=== PATIENT | female | born 1940 | race Caucasian/White ===

== ENCOUNTER 2017-01-12 19:15 | Inpatient (IN) | payer MEDICARE ==
[~2017-01-12] VITALS: Ht 167.6 cm; Wt 77.9 kg
[~2017-01-12 19:15] MED LIST: ALA PO; ALLERGY PILL PO; ALPR1TAB2 PO; ASPI1TAB30 PO; BIOTIN PO; CINNAMON PO; CO Q10 PO; CRANBERRY PO; CYMBALTA PO; DHEA PO; ENTERIC ASPIRIN PO; ESCI5TAB7 PO; FLAX PO; HYDR-3138 PO; LACT1CAP37 PO; LEVO25TA4 PO; LUTEIN PO; MAGNESIUM PO; MAXALT PO; MILK THISTLE PO; MULTIVITAMIN PO; NEURO PS PO; NIAC500T9 PO; OMEP20TA62 PO; OXYB1PAT TD; OXYB5TAB7 PO; PANCREATIC ENZYME PO; ST.150CA PO; TUMERIC PO; VITAMIN D PO
[2017-01-12] MEDS ORDERED: SODIUM CHLORIDE 0.9% 1,000 ML IV ONE (19:45)
[2017-01-12] MEDS ORDERED: methylPREDNISolone SOD SUCC 125 MG/2 ML ONE (19:58)
[2017-01-12] MEDS ORDERED: DIPHENHYDRAMINE 50 MG/ML, 1ML ONE (19:58)
[2017-01-12] MEDS ORDERED: DIPHENHYDRAMINE 50 MG/ML, 1ML IVPush ONE (20:00)
[2017-01-12] MEDS ORDERED: SODIUM CHLORIDE FLUSH 10ML SYR IVF ONE (20:00)
[2017-01-12] MEDS ORDERED: methylPREDNISolone SOD SUCC 125 MG/2 ML IVPush ONE (20:00)
[2017-01-12] MEDS ORDERED: LABETALOL 5MG/ML, 20ML IVPush ONE (20:00)
[2017-01-12] MEDS ORDERED: ONDANSETRON 2MG/ML, 2ML IVPush ONE (20:00)
[2017-01-12] MEDS ORDERED: ONDANSETRON 2MG/ML, 2ML ONE (20:12)
[2017-01-12] MEDS ORDERED: LABETALOL 5MG/ML, 20ML ONE (20:12)
[2017-01-12] MEDS ORDERED: MORPHINE SULFATE 4 MG/ML, 1ML ONE ×2 (20:12→22:04)
[2017-01-12 20:13] LABS: HEMOGLOBIN 14.1 g/dL (11.7-16.4)
[2017-01-12] MEDS: MORPHINE SULFATE 4 MG/ML, 1ML IVPush PRN ×2 (20:14→22:17)
[2017-01-12 20:23] LABS: ASPARTATE AMINO TRANSFERASE 20 U/L (15-37); BLOOD UREA NITROGEN 11 mg/dL (7-18)
[2017-01-12 20:42] LABS: IS PT STATUS REG ER OR PRE ER? YES
[2017-01-12] MEDS ORDERED: SODIUM CHLORIDE 0.9% 1,000 ML IV SCH (22:03)
[2017-01-12] MEDS ORDERED: ONDANSETRON 2MG/ML, 2ML IVP PRN (22:30)
[2017-01-12] MEDS ORDERED: NITROGLYCERIN 0.4 MG BOTTLE (25 TABS) SL PRN (22:30)
[2017-01-12] MEDS ORDERED: MORPHINE SULFATE 4 MG/ML, 1ML IVPush PRN (22:30)
[2017-01-12] MEDS ORDERED: MILK THISTLE PO SCH (22:30)
[2017-01-12] MEDS ORDERED: POLYETHYLENE GLYCOL 17 GM PACKET PO PRN (22:30)
[2017-01-12] MEDS ORDERED: BISACODYL 10 MG SUPP PR PRN (22:30)
[2017-01-12] MEDS ORDERED: ACETAMINOPHEN 325 MG TABLET PO PRN (22:30)
[2017-01-12 22:45] VITALS: BP 114/67
[2017-01-12] MEDS ORDERED: MAALOX/HYOSCYAMINE/LIDOCAINE 45 ML BOTTLE PO ONE (23:30)
[2017-01-12] MEDS: ALPRazolam 1MG TABLET PO SCH (23:56)
[2017-01-12] MEDS: HEPARIN 5,000 UNITS/ML, 1ML SQ SCH (23:58)
[2017-01-13 02:01] VITALS: BP 93/56
[2017-01-13 02:13] LABS: HEMOGLOBIN 12.9 g/dL (11.7-16.4)
[2017-01-13 02:33] LABS: IS PT STATUS REG ER OR PRE ER? NO
[2017-01-13] MEDS ORDERED: OMNIPAQUE 350 MG/ML, 100ML BOTTLE ONE (04:45)
[2017-01-13 06:00] VITALS: BP 105/64
[2017-01-13] MEDS: LEVOTHYROXINE 75 MCG TABLET PO SCH (06:00)
[2017-01-13 06:26] LABS: BLOOD UREA NITROGEN 12 mg/dL (7-18)
[2017-01-13 06:30] LABS: ASPARTATE AMINO TRANSFERASE 365 U/L (15-37)
[2017-01-13 06:39] VITALS: BP 105/62
[2017-01-13] MEDS: ALPRazolam 1MG TABLET PO SCH ×2 (07:54→20:39)
[2017-01-13] MEDS: SENNA/DOCUSATE TABLET PO SCH (07:55)
[2017-01-13] MEDS: NIACIN 500 MG TABLET.ER PO SCH (07:55)
[2017-01-13] MEDS: MAGNESIUM OXIDE 400 MG TABLET PO SCH (07:55)
[2017-01-13] MEDS: MULTIVITAMIN 1 TABLET PO SCH (07:55)
[2017-01-13] MEDS: OMEPRAZOLE 20 MG CAPSULE.DR PO SCH (07:55)
[2017-01-13] MEDS: OXYBUTYNIN CHLORIDE 5 MG TABLET PO SCH (07:55)
[2017-01-13] MEDS: CHOLECALCIFEROL 1,000 UNIT TABLET PO SCH (07:55)
[2017-01-13] MEDS: FLORASTOR 250 MG CAPSULE PO SCH (07:56)
[2017-01-13] MEDS: CITALOPRAM 20 MG TABLET PO SCH (07:56)
[2017-01-13] MEDS: HEPARIN 5,000 UNITS/ML, 1ML SQ SCH ×2 (07:56→15:42)
[2017-01-13 07:59] LABS: IS PT STATUS REG ER OR PRE ER? NO
[2017-01-13] MEDS ORDERED: MAALOX/HYOSCYAMINE/LIDOCAINE 45 ML BOTTLE PO PRN (08:00)
[2017-01-13] MEDS: SUCRALFATE 1 GM/10 ML UDC PO SCH ×4 (08:32→20:45)
[2017-01-13] MEDS ORDERED: REGADENOSON 0.4 MG/5 ML SYRINGE ONE (08:57)
[2017-01-13] MEDS ORDERED: OXYBUTYNIN TD SCH (09:00)
[2017-01-13] MEDS ORDERED: CO Q10 PO SCH (09:00)
[2017-01-13] MEDS ORDERED: FLAX PO SCH (09:00)
[2017-01-13] MEDS: NEURO PS PO SCH (09:00)
[2017-01-13] MEDS ORDERED: ASPI1TAB30 PO-COUM (11:36)
[2017-01-13 13:39] VITALS: BP 115/66
[2017-01-13] MEDS: SODIUM CHLORIDE NASAL SPRAY 45ML BOTTLE NAS PRN (14:40)
[2017-01-13 18:58] VITALS: BP 122/73
[2017-01-14] MEDS: HEPARIN 5,000 UNITS/ML, 1ML SQ SCH ×3 (00:06→08:10)
[2017-01-14 01:11] VITALS: BP 95/56
[2017-01-14] MEDS: LEVOTHYROXINE 75 MCG TABLET PO SCH (06:01)
[2017-01-14 06:38] LABS: ASPARTATE AMINO TRANSFERASE 96 U/L (15-37); BLOOD UREA NITROGEN 14 mg/dL (7-18)
[2017-01-14 07:08] VITALS: BP 137/84
[2017-01-14] MEDS ORDERED: SUCR1ORA2 PO (07:57)
[2017-01-14] MEDS ORDERED: OMEP20TA62 PO (07:57)
[2017-01-14] MEDS: SUCRALFATE 1 GM/10 ML UDC PO SCH (08:05)
[2017-01-14] MEDS: SODIUM CHLORIDE NASAL SPRAY 45ML BOTTLE NAS PRN (08:05)
[2017-01-14] MEDS: ALPRazolam 1MG TABLET PO SCH (08:06)
[2017-01-14] MEDS: FLORASTOR 250 MG CAPSULE PO SCH (08:06)
[2017-01-14] MEDS: CHOLECALCIFEROL 1,000 UNIT TABLET PO SCH (08:07)
[2017-01-14] MEDS: NIACIN 500 MG TABLET.ER PO SCH (08:07)
[2017-01-14] MEDS: CITALOPRAM 20 MG TABLET PO SCH (08:07)
[2017-01-14] MEDS: OMEPRAZOLE 20 MG CAPSULE.DR PO SCH (08:07)
[2017-01-14] MEDS: MAGNESIUM OXIDE 400 MG TABLET PO SCH (08:07)
[2017-01-14] MEDS: MULTIVITAMIN 1 TABLET PO SCH (08:07)
[2017-01-14] MEDS: OXYBUTYNIN CHLORIDE 5 MG TABLET PO SCH (08:08)
[2017-01-14] MEDS: SENNA/DOCUSATE TABLET PO SCH (08:10)
[2017-01-14] MEDS: NEURO PS PO SCH (09:00)
== END 2017-01-14 10:38 | disposition home or self-care (01) | DRG 442 ==
LOC: ED 21:15 → EDIP 21:35 → 5SO 22:29 → DCLOUNGE 01-14 09:45
PROVIDERS: ADMIT Family Medicine; ATTEND Internal Medicine
DX: B17.9 Acute viral hepatitis, unspecified (principal); E87.1 Hypo-osmolality and hyponatremia; J96.10 Chronic respiratory failure, unspecified whether with hypoxia or hypercapnia; K21.9 Gastro-esophageal reflux disease without esophagitis; I10 Essential (primary) hypertension; J44.9 Chronic obstructive pulmonary disease, unspecified; Z66 Do not resuscitate; E03.9 Hypothyroidism, unspecified; J45.909 Unspecified asthma, uncomplicated; K76.0 Fatty (change of) liver, not elsewhere classified; M48.00 Spinal stenosis, site unspecified; Z99.81 Dependence on supplemental oxygen; Z88.8 Allergy status to other drugs, medicaments and biological substances; Z91.013 Allergy to seafood
CPT/HCPCS: 36415; 71010; 71275; 74175; 78452; 80053; 83690; 83735; 83880; 84100; 84443; 84484; 85025; 85610; 86704; 86706; 86708; 86803; 87340; 93005; 93017; 93306; 96374; 96375; 96376; J1644; J2405; J2785; Q9967; A9502; C9898; J1200; J2930; J7030

== ENCOUNTER 2017-08-08 10:13 | Emergency (ER) | payer MEDICARE ==
[~2017-08-08] VITALS: Ht 167.6 cm; Wt 68.0 kg
[~2017-08-08 10:13] MED LIST changes: -ASPI1TAB30 PO; +ASPI1TAB31 PO; +ASPI1TAB31 PO-COUM; -HYDR-3138 PO; +HYDR-3237 PO; +SUCR1ORA5 PO
[2017-08-08 10:15] VITALS: BP 202/87
== END 2017-08-08 12:14 | disposition home or self-care (01) ==
LOC: ED 10:39
DX: Z76.0 Encounter for issue of repeat prescription (principal); F41.1 Generalized anxiety disorder; I10 Essential (primary) hypertension; K21.9 Gastro-esophageal reflux disease without esophagitis; J44.9 Chronic obstructive pulmonary disease, unspecified
CPT/HCPCS: 99282

== ENCOUNTER 2017-08-10 10:34 | Emergency (ER) | payer MEDICARE ==
[~2017-08-10] VITALS: Ht 167.6 cm; Wt 67.4 kg
[2017-08-10 10:36] VITALS: BP 154/92
== END 2017-08-10 11:36 | disposition home or self-care (01) ==
LOC: ED 11:24
DX: Z76.0 Encounter for issue of repeat prescription (principal); F41.1 Generalized anxiety disorder; J44.9 Chronic obstructive pulmonary disease, unspecified; K21.9 Gastro-esophageal reflux disease without esophagitis; I10 Essential (primary) hypertension; Z88.8 Allergy status to other drugs, medicaments and biological substances
CPT/HCPCS: 99283

== ENCOUNTER 2018-12-13 14:56 | Emergency (ER) | payer MEDICARE, OTHER ==
[~2018-12-13] VITALS: Ht 170.2 cm; Wt 59.6 kg
[2018-12-13 15:05] VITALS: BP 167/100
[2018-12-13] MEDS ORDERED: ALPRazolam 1MG TABLET PO ONE (16:00)
== END 2018-12-13 15:54 | disposition home or self-care (01) ==
LOC: ED 15:40
DX: F41.1 Generalized anxiety disorder (principal); Z76.0 Encounter for issue of repeat prescription; K21.9 Gastro-esophageal reflux disease without esophagitis; I10 Essential (primary) hypertension; J44.9 Chronic obstructive pulmonary disease, unspecified
CPT/HCPCS: 99282